=== PATIENT | male | born 1985 | race Caucasian/White ===

== ENCOUNTER → 2020-12-29 | Outpatient (CLI) | payer BC ==
[~2020-12-29] MED LIST: MYLANTA MAXIMU355 ML PO; PROTONIX40 MG PO; ZOFRAN ODT 4 MG4 MG GT; ZOFRAN4 MG PO
[2020-12-29 09:43] LABS: HEMOGLOBIN 15.8 gm/dl (14.0-17.5); RED BLOOD COUNT 5.19 M/UL (4.20-5.50); WHITE BLOOD COUNT 5.8 K/UL (4.5-11.0)
[2020-12-29 10:06] LABS: BUN/CREATININE RATIO 19 (0-10)
[2020-12-30 09:15] LABS: CREATININE, URINE 162.2 mg/dL (Not Estab.)
== END ==
LOC: RAD 09:17 → LAB 09:17
PROVIDERS: Family Medicine
DX: R05 Cough (principal); E11.9 Type 2 diabetes mellitus without complications
CPT/HCPCS: 36415; 71046; 80053; 80061; 82043; 82570; 83735; 84443; 85027

== ENCOUNTER → 2021-01-08 | Outpatient (CLI) | payer BC, OTHER | LOC: US 08:00 | DX: R79.89 Other specified abnormal findings of blood chemistry (principal); R93.2 Abnormal findings on diagnostic imaging of liver and biliary tract | CPT/HCPCS: 76700 ==

== ENCOUNTER → 2021-01-13 | Outpatient (CLI) | payer BC, OTHER ==
[2021-01-13 12:20] LABS: BUN/CREATININE RATIO 10 (0-10)
[2021-01-14 08:15] LABS: ALPHA-1-ANTITRYPSIN, SERUM 142 mg/dL (95-164)
[2021-01-14 10:16] LABS: HBSAG SCREEN Negative (Negative); HEP A AB, IGM Negative (Negative); HEP B CORE AB, IGM Negative (Negative); HEP C VIRUS AB <0.1 (0.0-0.9)
[2021-01-14 14:11] LABS: MITOCHONDRIAL (M2) ANTIBODY <20.0 Units (0.0-20.0)
== END ==
LOC: LAB 11:19
PROVIDERS: Family Medicine
DX: R79.89 Other specified abnormal findings of blood chemistry (principal); K76.0 Fatty (change of) liver, not elsewhere classified; R07.81 Pleurodynia
CPT/HCPCS: 36415; 80053; 80074; 82103; 82728; 83540; 83550; 84484; 86038

== ENCOUNTER 2021-01-27 15:21 | Emergency (ER) | payer BC, OTHER ==
[~2021-01-27 15:21] MED LIST changes: -MYLANTA MAXIMU355 ML PO; -PROTONIX40 MG PO; -ZOFRAN ODT 4 MG4 MG GT
[2021-01-27 18:39] LABS: RED BLOOD COUNT 5.01 M/UL (4.20-5.50)
[2021-01-27 19:03] LABS: BUN/CREATININE RATIO 12 (0-10)
[2021-01-27] MEDS ORDERED: PROTONIX40 MG PO (19:59)
[2021-01-27] MEDS ORDERED: MYLANTA MAXIMU355 ML PO (19:59)
[2021-01-27] MEDS ORDERED: ZOFRAN ODT 4 MG4 MG GT (19:59)
== END 2021-01-27 20:13 | disposition home or self-care (01) ==
LOC: ER1 15:21
PROVIDERS: Emergency Medicine
DX: R04.2 Hemoptysis (principal); K22.8 Other specified diseases of esophagus; E11.9 Type 2 diabetes mellitus without complications
CPT/HCPCS: 71045; 80053; 82550; 82553; 83874; 84484; 85025; 85379; 85610; 85730; 86140; 93005; 96374; 99284; C9113

== ENCOUNTER → 2022-06-15 | Outpatient (CLI) | payer BC ==
[~2022-06-15] MED LIST changes: +MYLANTA MAXIMU355 ML PO; +PROTONIX40 MG PO; +ZOFRAN ODT 4 MG4 MG GT
[2022-06-15 09:04] LABS: RED BLOOD COUNT 5.06 M/UL (4.20-5.50); WHITE BLOOD COUNT 5.9 K/UL (4.5-11.0)
[2022-06-15 09:27] LABS: BUN/CREATININE RATIO 9 (0-10)
[2022-06-16 10:14] LABS: CREATININE, URINE 214.9 mg/dL (Not Estab.)
== END ==
LOC: LAB 08:36
PROVIDERS: Family Medicine
DX: E78.2 Mixed hyperlipidemia (principal); E11.9 Type 2 diabetes mellitus without complications; Z79.899 Other long term (current) drug therapy
CPT/HCPCS: 36415; 80053; 80061; 82043; 82570; 82607; 83735; 85027